=== PATIENT | male | born 1975 | race Two or more races ===

== ENCOUNTER 2023-10-07 23:37 | Emergency (ER) | payer OTHER ==
[~2023-10-07] VITALS: Ht 177.8 cm; Wt 93.4 kg
[2023-10-08 04:21] VITALS: BP 152/74; PULSE 67; RESP 18; O2SAT 99
== END 2023-10-08 04:20 | disposition home or self-care (01) ==
LOC: ER 23:37
DX: S86.812A Strain of other muscle(s) and tendon(s) at lower leg level, left leg, initial encounter (principal); X58.XXXA Exposure to other specified factors, initial encounter; Y93.89 Activity, other specified; Y92.89 Other specified places as the place of occurrence of the external cause; Y99.8 Other external cause status
CPT/HCPCS: 73562